=== PATIENT | female | born 1955 | race Caucasian/White ===

== ENCOUNTER 2017-10-26 13:04 | Inpatient (IN) | payer BC, MEDICAID ==
[2017-10-26 14:29] LABS: ADD MAN DIFF? NO
[2017-10-26 14:31] LABS: BASOPHIL # 0.1 10^3/ul (0.0-0.1); BASOPHILS % 1.4 % (0.0-2.0); EOSINOPHILS % 0.2 % (0.0-7.0); HEMATOCRIT 41.8 % (37.0-47.0); HEMOGLOBIN 13.8 g/dl (12.0-16.0); LYMPHOCYTES # 0.8 10^3/ul (0.8-2.9); LYMPHOCYTES % 17.1 % (15.0-51.0); MEAN CORPUSCULAR HEMOGLOBIN 30.7 pg (29.0-33.0); MEAN CORPUSCULAR VOLUME 93.1 fl (82.0-101.0); MEAN PLATELET VOLUME 9.2 fl (7.4-10.4); MONOCYTE # 0.4 10^3/ul (0.3-0.9); MONOCYTES % 9.7 % (0.0-11.0); NEUTROPHIL # 3.2 10^3/ul (1.6-7.5); NEUTROPHILS % 71.4 % (39.0-77.0); PLATELET COUNT 143 10^3/UL (140-415); RED BLOOD COUNT 4.49 10^6/ul (4.20-5.40); RED CELL DISTRIBUTION WIDTH 14.9 % (11.5-14.5)
[2017-10-26 14:31] LABS: WHITE BLOOD COUNT 4.4 10^3/ul (4.8-10.8)
[2017-10-26 14:34] LABS: INR 1.05; PROTIME 13.8 Sec (11.9-14.9); PT RATIO 1.1
[2017-10-26 14:35] LABS: PARTIAL THROMBOPLASTIN TIME 28.4 Sec (25.0-35.0)
[2017-10-26 14:39] LABS: ALANINE AMINOTRANSFERASE 107 IU/L (13-69); ALBUMIN 4.6 g/dl (3.3-4.9); ALBUMIN/GLOBULIN RATIO 1.12; ALKALINE PHOSPHATASE 328 IU/L (42-121); ANION GAP 18 (8-16); ASPARTATE AMINO TRANSFERASE 132 IU/L (15-46); BILIRUBIN,INDIRECT 0.5 mg/dl (0-1.1); BILIRUBIN,TOTAL 0.5 mg/dl (0.2-1.3); BLOOD UREA NITROGEN 22 mg/dl (7-20); CALCIUM 10.1 mg/dl (8.4-10.2); CARBON DIOXIDE 25 mmol/L (21-31); CHLORIDE 104 mmol/L (97-110); CREATININE 0.54 mg/dl (0.44-1.00); GLUCOSE 92 mg/dl (70-220); POTASSIUM 4.5 mmol/L (3.5-5.1); SODIUM 142 mmol/L (135-144); TOTAL PROTEIN 8.7 g/dl (6.1-8.1)
[2017-10-26] MEDS: SODIUM CHLORIDE 0.9% 1L BAG IV* (14:48)
[2017-10-26 14:51] LABS: LACTIC ACID 2.1 mmol/L (0.5-2.0)
[2017-10-26 14:52] LABS: TROPONIN-I < 0.012 ng/ml (0.00-0.12)
[2017-10-26] MEDS: HYDROmorphONE 1 MG/5 ML IV SYRINGE IV ×2 (15:02→17:05)
[2017-10-26] MEDS: ONDANSETRON 4 MG INJ IV (15:02)
[2017-10-26] MEDS: CEFEPIME 1GM/50 ML (PMX) 50 ML IVPB ×2 (15:32→23:37)
[2017-10-26] MEDS: VANCOMYCIN 1 GM (PMX) 250 ML IVPB (15:51)
[2017-10-26 16:55] LABS: URINE BLOOD (Dip) POC 2+ (NEGATIVE); URINE GLUCOSE (Dip) POC Negative (NEGATIVE); URINE KETONES (Dip) POC 2+ (NEGATIVE); URINE LEUKOCYTE EST (Dip) POC 1+ (NEGATIVE); URINE NITRITE (Dip) POC Negative (NEGATIVE); URINE TOTAL PROTEIN POC 3+ (NEGATIVE)
[2017-10-26 16:55] LABS: URINE PH (Dip) POC 5.5 (5.0-8.5)
[2017-10-26] MEDS ORDERED: ACETAMINOPHEN 325 MG TAB PO (17:30)
[2017-10-26] MEDS ORDERED: ONDANSETRON 4 MG INJ IV (17:30)
[2017-10-26 17:34] LABS: ADD UMIC YES; UR ASCORBIC ACID NEGATIVE (NEGATIVE); UR BACTERIA FEW /HPF (NONE SEEN); UR BILIRUBIN (Dip) NEGATIVE (NEGATIVE); UR BLOOD (Dip) 1+ mg/dL (NEGATIVE); UR CALCIUM OXALATE CRYSTAL FEW /HPF (NONE SEEN); UR CLARITY SLIGHTLY CLOUDY (CLEAR); UR COLOR YELLOW (YELLOW); UR GLUCOSE (Dip) NEGATIVE (NEGATIVE); UR KETONES (Dip) 1+ mg/dL (NEGATIVE); UR LEUKOCYTE ESTERASE (Dip) 3+ Leu/ul (NEGATIVE); UR MUCUS FEW /HPF (NONE SEEN); UR NITRITE (Dip) NEGATIVE (NEGATIVE); UR RBC 15 /HPF (0-5); UR SPECIFIC GRAVITY (Dip) 1.016 (1.003-1.030); UR SQUAMOUS EPITHELIAL CELL FEW /HPF (FEW); UR TOTAL PROTEIN (Dip) 2+ mg/dl (NEGATIVE); UR UROBILINOGEN (Dip) NEGATIVE (NEGATIVE); UR WBC 124 /HPF (0-5)
[2017-10-26 18:42] LABS: LACTIC ACID 1.8 mmol/L (0.5-2.0)
[2017-10-26] MEDS ORDERED: morphine 2 MG INJ IV (19:00)
[2017-10-26] MEDS ORDERED: NACL 0.9% 3 ML SYG IV (19:00)
[2017-10-26] MEDS: HYDROCODONE/APAP (5/325) TAB PO (19:57)
[2017-10-26] MEDS: morphine (ER) 15 MG TAB PO (21:00)
[2017-10-26] MEDS: IBUPROFEN 600 MG TAB PO (22:04)
[2017-10-26 22:21] LABS: LACTIC ACID 1.3 mmol/L (0.5-2.0)
[2017-10-27] MEDS: HYDROCODONE/APAP (5/325) TAB PO (03:36)
[2017-10-27 08:48] LABS: ADD MAN DIFF? NO
[2017-10-27 08:52] LABS: BASOPHIL # 0.1 10^3/ul (0.0-0.1); BASOPHILS % 1.7 % (0.0-2.0); HEMOGLOBIN 11.1 g/dl (12.0-16.0); LYMPHOCYTES # 0.9 10^3/ul (0.8-2.9); LYMPHOCYTES % 31.5 % (15.0-51.0); MEAN CORPUSCULAR HEMOGLOBIN 30.5 pg (29.0-33.0); MEAN CORPUSCULAR HGB CONC 32.6 g/dl (32.0-37.0); MEAN CORPUSCULAR VOLUME 93.4 fl (82.0-101.0); MEAN PLATELET VOLUME 8.8 fl (7.4-10.4); MONOCYTE # 0.4 10^3/ul (0.3-0.9); MONOCYTES % 12.2 % (0.0-11.0); NEUTROPHIL # 1.6 10^3/ul (1.6-7.5); NEUTROPHILS % 53.3 % (39.0-77.0); PLATELET COUNT 143 10^3/UL (140-415); RED BLOOD COUNT 3.64 10^6/ul (4.20-5.40); RED CELL DISTRIBUTION WIDTH 15.1 % (11.5-14.5)
[2017-10-27 09:22] LABS: ALANINE AMINOTRANSFERASE 69 IU/L (13-69); ALBUMIN 3.3 g/dl (3.3-4.9); ALBUMIN/GLOBULIN RATIO 1.06; ALKALINE PHOSPHATASE 230 IU/L (42-121); ANION GAP 13 (8-16); ASPARTATE AMINO TRANSFERASE 66 IU/L (15-46); BILIRUBIN,INDIRECT 0.5 mg/dl (0-1.1); BILIRUBIN,TOTAL 0.5 mg/dl (0.2-1.3); BLOOD UREA NITROGEN 20 mg/dl (7-20); CALCIUM 9.6 mg/dl (8.4-10.2); CARBON DIOXIDE 23 mmol/L (21-31); CHLORIDE 111 mmol/L (97-110); CREATININE 0.62 mg/dl (0.44-1.00); GLUCOSE 80 mg/dl (70-220); POTASSIUM 3.9 mmol/L (3.5-5.1); SODIUM 143 mmol/L (135-144); TOTAL PROTEIN 6.4 g/dl (6.1-8.1)
[2017-10-27] MEDS: IBUPROFEN 600 MG TAB PO ×3 (09:22→20:09)
[2017-10-27] MEDS: ENOXAPARIN 30 MG/0.3 ML SYG SC (09:25)
[2017-10-27] MEDS ORDERED: IOHEXOL 300MG/ML 150 ML BTL (09:58)
[2017-10-27] MEDS ORDERED: SOD CHLORIDE 0.9% 100 ML (09:58)
[2017-10-27] MEDS: morphine (ER) 30 MG TAB PO ×2 (10:00→20:10)
[2017-10-27] MEDS: CEFEPIME 1GM/50 ML (PMX) 50 ML IVPB (11:49)
[2017-10-27] MEDS: LEVOFLOXACIN 500MG/D5W (PMX) 100 ML IVPB (15:58)
[2017-10-27] MEDS: SOD CHLORIDE 0.9% 1,000 ML IV (15:58)
[2017-10-27] MEDS: BARIUM SULF 2% 450 ML BTL (BERRY SMOOTHIE) PO (20:32)
[2017-10-27] MEDS: ONDANSETRON 4 MG INJ IV (22:27)
[2017-10-28] MEDS ORDERED: IOHEXOL 300MG/ML 150 ML BTL (00:13)
[2017-10-28] MEDS ORDERED: SOD CHLORIDE 0.9% 100 ML (00:13)
[2017-10-28] MEDS: morphine (ER) 30 MG TAB PO ×2 (09:00→21:03)
[2017-10-28 09:02] LABS: ADD MAN DIFF? NO
[2017-10-28 09:10] LABS: WHITE BLOOD COUNT 3.4 10^3/ul (4.8-10.8)
[2017-10-28 09:10] LABS: BASOPHIL # 0.1 10^3/ul (0.0-0.1); EOSINOPHILS % 0.6 % (0.0-7.0); HEMATOCRIT 34.2 % (37.0-47.0); HEMOGLOBIN 11.3 g/dl (12.0-16.0); LYMPHOCYTES # 1.1 10^3/ul (0.8-2.9); LYMPHOCYTES % 32.7 % (15.0-51.0); MEAN PLATELET VOLUME 8.8 fl (7.4-10.4); MONOCYTE # 0.5 10^3/ul (0.3-0.9); MONOCYTES % 15.5 % (0.0-11.0); NEUTROPHIL # 1.7 10^3/ul (1.6-7.5); NEUTROPHILS % 48.9 % (39.0-77.0); PLATELET COUNT 168 10^3/UL (140-415); RED BLOOD COUNT 3.64 10^6/ul (4.20-5.40); RED CELL DISTRIBUTION WIDTH 15.3 % (11.5-14.5)
[2017-10-28] MEDS: ENOXAPARIN 30 MG/0.3 ML SYG SC (09:26)
[2017-10-28] MEDS: IBUPROFEN 600 MG TAB PO ×3 (09:26→21:01)
[2017-10-28] MEDS: ONDANSETRON 4 MG INJ IV ×2 (09:34→17:35)
[2017-10-28 09:56] LABS: ANION GAP 11 (8-16); BLOOD UREA NITROGEN 13 mg/dl (7-20); CALCIUM 9.6 mg/dl (8.4-10.2); CARBON DIOXIDE 26 mmol/L (21-31); CHLORIDE 109 mmol/L (97-110); CREATININE 0.55 mg/dl (0.44-1.00); GLUCOSE 83 mg/dl (70-220); MAGNESIUM 2.1 mg/dl (1.7-2.5); PHOSPHORUS 2.2 mg/dl (2.5-4.9); POTASSIUM 3.8 mmol/L (3.5-5.1); SODIUM 142 mmol/L (135-144)
[2017-10-28] MEDS: SOD CHLORIDE 0.9% 1,000 ML IV (11:00)
[2017-10-28 11:27] LABS: CA27.29 369 U/mL (<38)
[2017-10-28] MEDS: LEVOFLOXACIN 500MG/D5W (PMX) 100 ML IVPB (15:40)
[2017-10-28 22:48] LABS: CANCER ANTIGEN 15-3 321 U/mL (<32)
[2017-10-29] MEDS: SOD CHLORIDE 0.9% 1,000 ML IV (01:05)
[2017-10-29 07:31] LABS: ABNORMAL IP MESSAGE 1; HEMATOCRIT 31.4 % (37.0-47.0); HEMOGLOBIN 10.3 g/dl (12.0-16.0); MEAN CORPUSCULAR HEMOGLOBIN 30.7 pg (29.0-33.0); MEAN CORPUSCULAR HGB CONC 32.8 g/dl (32.0-37.0); MEAN CORPUSCULAR VOLUME 93.7 fl (82.0-101.0); MEAN PLATELET VOLUME 9.1 fl (7.4-10.4); PLATELET COUNT 184 10^3/UL (140-415); RED BLOOD COUNT 3.35 10^6/ul (4.20-5.40); RED CELL DISTRIBUTION WIDTH 15.5 % (11.5-14.5)
[2017-10-29 07:31] LABS: WHITE BLOOD COUNT 2.2 10^3/ul (4.8-10.8)
[2017-10-29 07:32] LABS: POSITIVE DIFF @See below
[2017-10-29 07:33] LABS: ADD MAN DIFF? YES
[2017-10-29 07:56] LABS: ANION GAP 8 (8-16); BLOOD UREA NITROGEN 10 mg/dl (7-20); CALCIUM 9.1 mg/dl (8.4-10.2); CARBON DIOXIDE 29 mmol/L (21-31); CHLORIDE 109 mmol/L (97-110); CREATININE 0.56 mg/dl (0.44-1.00); GLUCOSE 85 mg/dl (70-220); MAGNESIUM 2.1 mg/dl (1.7-2.5); PHOSPHORUS 2.2 mg/dl (2.5-4.9); POTASSIUM 3.6 mmol/L (3.5-5.1); SODIUM 142 mmol/L (135-144)
[2017-10-29] MEDS: morphine (ER) 30 MG TAB PO ×2 (08:37→21:49)
[2017-10-29] MEDS: IBUPROFEN 600 MG TAB PO ×3 (08:37→21:49)
[2017-10-29] MEDS: ENOXAPARIN 30 MG/0.3 ML SYG SC (08:38)
[2017-10-29 09:04] LABS: ANISOCYTOSIS 1+ (0-0); BAND NEUTROPHILS #M 0.2 10^3/ul (0.0-0.6); BAND NEUTROPHILS % (M) 12 % (0-4); BASOPHILS % (M) 2 % (0-2); EOSINOPHILS % (M) 1 % (0-7); GIANT THROMBO% (M) 1 % (0-0); LYMPHOCYTES #M 0.6 10^3/ul (0.8-2.9); LYMPHOCYTES % (M) 30 % (15-51); MICROCYTOSIS 1+ (0-0); MONOCYTE #M 0.4 10^3/ul (0.3-0.9); MONOCYTES % (M) 19 % (0-11); PLATELET ESTIMATE NORMAL; POLYCHROMASIA 3+ (0-0); RBC MORPHOLOGY COMMENT @See below; SEG NEUT #M 0.8 10^3/ul (1.6-7.5); SEGMENTED NEUTROPHILS (M) % 36 % (39-77); SMUDGE%M 4 % (0-0); WBC MORPHOLOGY COMMENT @See below
[2017-10-29] MEDS: SOD CHLORIDE 0.45% 1,000 ML IV (14:47)
[2017-10-29] MEDS: CEFEPIME 1GM/50 ML (PMX) 50 ML IVPB (21:50)
[2017-10-30 08:54] LABS: ADD MAN DIFF? NO
[2017-10-30 08:58] LABS: ABNORMAL IP MESSAGE 1; BASOPHIL # 0.1 10^3/ul (0.0-0.1); BASOPHILS % 2.2 % (0.0-2.0); EOSINOPHILS % 0.4 % (0.0-7.0); HEMATOCRIT 32.3 % (37.0-47.0); HEMOGLOBIN 10.7 g/dl (12.0-16.0); LYMPHOCYTES # 0.9 10^3/ul (0.8-2.9); LYMPHOCYTES % 37.7 % (15.0-51.0); MEAN CORPUSCULAR HEMOGLOBIN 31.2 pg (29.0-33.0); MEAN CORPUSCULAR HGB CONC 33.1 g/dl (32.0-37.0); MEAN CORPUSCULAR VOLUME 94.2 fl (82.0-101.0); MEAN PLATELET VOLUME 8.7 fl (7.4-10.4); MONOCYTE # 0.4 10^3/ul (0.3-0.9); MONOCYTES % 17.3 % (0.0-11.0); NEUTROPHIL # 0.9 10^3/ul (1.6-7.5); NEUTROPHILS % 40.7 % (39.0-77.0); NUCLEATED RED BLOOD CELLS% 0.9 /100WBC (0.0-0.0); PLATELET COUNT 190 10^3/UL (140-415); RED BLOOD COUNT 3.43 10^6/ul (4.20-5.40); RED CELL DISTRIBUTION WIDTH 15.4 % (11.5-14.5)
[2017-10-30 08:58] LABS: WHITE BLOOD COUNT 2.3 10^3/ul (4.8-10.8)
[2017-10-30] MEDS: IBUPROFEN 600 MG TAB PO (09:07)
[2017-10-30] MEDS: CEFEPIME 1GM/50 ML (PMX) 50 ML IVPB ×2 (09:08→20:31)
[2017-10-30] MEDS: morphine (ER) 30 MG TAB PO ×2 (09:09→20:32)
[2017-10-30] MEDS: ENOXAPARIN 30 MG/0.3 ML SYG SC (09:10)
[2017-10-30 09:27] LABS: ANION GAP 13 (8-16); BLOOD UREA NITROGEN 8 mg/dl (7-20); CALCIUM 8.9 mg/dl (8.4-10.2); CARBON DIOXIDE 26 mmol/L (21-31); CHLORIDE 109 mmol/L (97-110); CREATININE 0.53 mg/dl (0.44-1.00); GLUCOSE 90 mg/dl (70-220); MAGNESIUM 1.9 mg/dl (1.7-2.5); PHOSPHORUS 2.8 mg/dl (2.5-4.9); POTASSIUM 3.7 mmol/L (3.5-5.1); SODIUM 144 mmol/L (135-144)
[2017-10-30] MEDS: SOD CHLORIDE 0.45% 1,000 ML IV (10:12)
[2017-10-30] MEDS: HYDROmorphONE 0.5 MG/0.5 ML SYG IV (23:57)
[2017-10-31] MEDS: SOD CHLORIDE 0.45% 1,000 ML IV ×2 (06:30→19:10)
[2017-10-31] MEDS: morphine (ER) 30 MG TAB PO ×2 (08:32→21:08)
[2017-10-31] MEDS: CEFEPIME 1GM/50 ML (PMX) 50 ML IVPB (08:33)
[2017-10-31] MEDS: ENOXAPARIN 30 MG/0.3 ML SYG SC (08:35)
[2017-10-31] MEDS: ONDANSETRON 4 MG INJ IV (11:22)
[2017-10-31] MEDS: HYDROmorphONE 2 MG TAB PO (11:28)
[2017-11-01] MEDS: HYDROmorphONE 2 MG TAB PO (00:06)
[2017-11-01] MEDS: HYDROmorphONE 0.5 MG/0.5 ML SYG IV (07:33)
[2017-11-01] MEDS: morphine (ER) 30 MG TAB PO ×2 (08:58→20:45)
[2017-11-01] MEDS: ENOXAPARIN 30 MG/0.3 ML SYG SC (09:01)
[2017-11-01] MEDS: ONDANSETRON 4 MG INJ IV (20:45)
[2017-11-01] MEDS: SOD CHLORIDE 0.45% 1,000 ML IV (22:30)
[2017-11-02 06:25] LABS: ADD MAN DIFF? NO
[2017-11-02 07:03] LABS: ANION GAP 10 (8-16); BLOOD UREA NITROGEN 7 mg/dl (7-20); CALCIUM 8.9 mg/dl (8.4-10.2); CARBON DIOXIDE 31 mmol/L (21-31); CHLORIDE 106 mmol/L (97-110); CREATININE 0.47 mg/dl (0.44-1.00); GLUCOSE 86 mg/dl (70-220); PHOSPHORUS 2.1 mg/dl (2.5-4.9); POTASSIUM 3.7 mmol/L (3.5-5.1); SODIUM 143 mmol/L (135-144)
[2017-11-02 07:25] LABS: BASOPHIL # 0.1 10^3/ul (0.0-0.1); BASOPHILS % 1.7 % (0.0-2.0); EOSINOPHILS % 0.3 % (0.0-7.0); HEMATOCRIT 32.7 % (37.0-47.0); HEMOGLOBIN 10.9 g/dl (12.0-16.0); LYMPHOCYTES # 0.9 10^3/ul (0.8-2.9); LYMPHOCYTES % 26.4 % (15.0-51.0); MEAN CORPUSCULAR HEMOGLOBIN 30.4 pg (29.0-33.0); MEAN CORPUSCULAR HGB CONC 33.3 g/dl (32.0-37.0); MEAN CORPUSCULAR VOLUME 91.3 fl (82.0-101.0); MEAN PLATELET VOLUME 9.2 fl (7.4-10.4); MONOCYTE # 0.8 10^3/ul (0.3-0.9); MONOCYTES % 21.3 % (0.0-11.0); NEUTROPHIL # 1.7 10^3/ul (1.6-7.5); NEUTROPHILS % 47.7 % (39.0-77.0); PLATELET COUNT 230 10^3/UL (140-415); RED BLOOD COUNT 3.58 10^6/ul (4.20-5.40); RED CELL DISTRIBUTION WIDTH 15.5 % (11.5-14.5)
[2017-11-02 07:25] LABS: WHITE BLOOD COUNT 3.5 10^3/ul (4.8-10.8)
[2017-11-02] MEDS: ENOXAPARIN 30 MG/0.3 ML SYG SC (08:20)
[2017-11-02] MEDS: morphine (ER) 30 MG TAB PO ×2 (08:21→21:04)
[2017-11-02] MEDS: POLYETHYLENE GLYCOL 17 GM PACKET PO (13:49)
[2017-11-02] MEDS: ONDANSETRON 4 MG INJ IV (15:35)
[2017-11-02] MEDS: SOD CHLORIDE 0.45% 1,000 ML IV (17:15)
[2017-11-02] MEDS: HYDROmorphONE 0.5 MG/0.5 ML SYG IV (19:54)
[2017-11-03] MEDS: morphine (ER) 30 MG TAB PO ×2 (08:10→09:05)
[2017-11-03] MEDS: POLYETHYLENE GLYCOL 17 GM PACKET PO (08:11)
[2017-11-03] MEDS: ENOXAPARIN 30 MG/0.3 ML SYG SC (08:15)
[2017-11-03] MEDS: SOD CHLORIDE 0.45% 1,000 ML IV (15:13)
== END 2017-11-03 21:33 | disposition home health service (06) | DRG 871 ==
LOC: E/R 13:04 → MS4 18:32
DX: A41.9 Sepsis, unspecified organism (principal); E43 Unspecified severe protein-calorie malnutrition; C78.2 Secondary malignant neoplasm of pleura; C79.51 Secondary malignant neoplasm of bone; N39.0 Urinary tract infection, site not specified; Z68.1 Body mass index [BMI] 19.9 or less, adult; N30.01 Acute cystitis with hematuria; C50.919 Malignant neoplasm of unspecified site of unspecified female breast; Z17.0 Estrogen receptor positive status [ER+]; N20.0 Calculus of kidney; R19.7 Diarrhea, unspecified; E86.0 Dehydration
CPT/HCPCS: 36415; 71045; 71260; 74018; 74177; 76775; 78306; 80048; 80053; 81001; 81003; 83605; 83735; 84100; 84484; 85025; 85610; 85730; 86300; 87040; 87086; 93005; 96374; 96375; 96376; 97163; 99291-25; A9503